=== PATIENT | male | born 1960 ===

== ENCOUNTER 2025-08-29 08:34 | Outpatient (AMB) | payer OTHER, SELFPAY ==
--- NOTE | 2025-08-29 08:56 | A.OFFVIS_ITS ---
Intake Visit Reasons: 6 month f/u HPI Comments Details: 64 years old man with Parkinson's disease. Symptoms started around 2018 when he started to shuffle and had trouble with movements and tremor. He is presenting for a follow-up visit for management of Parkinson's disease. His current medication regimen includes Carbidopa/Levodopa five times daily, rasagiline once daily, and trihexyphenidyl twice daily. He took his morning medications at 6:00 AM and notes he can feel when the dose is wearing off. He tolerates his medications well, denying significant dry mouth from trihexyphenidyl. The patient reports occasional minor visual disturbances, describing them as seeing something like a fly or a color pass by, but denies hallucinations or changes in personality. He experiences variable sleep quality with good and bad nights, and if he cannot sleep, he will get up rather than forcing it. He reports waking up approximately twice per night. The patient was advised by his primary care provider to stop taking rosuvastatin in April due to persistent backaches and other aches, which have since resolved. He confirms he maintains a physically active lifestyle by walking and exercising daily. 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 Review of Systems Narrative - General: Reports enjoying life and maintaining a positive attitude. - Eyes: Reports occasional visual phenomena, such as seeing things fly by or a color. Denies other vision changes. Last eye exam was two years ago. - Mouth: Denies significant dry mouth. - Musculoskeletal: Reports a history of backaches and other aches which resolved after discontinuing rosuvastatin. Reports his back is bothering him a little bit currently. - Neurological: Reports variable sleep with good and bad nights. Denies personality changes. Denies having hallucinations. - Genitourinary: Reports nocturia, waking twice per night. Physical Exam Neuro Other: Mental Status: Alert and oriented to person, place, and time. Normal attention. Normal spontaneous speech, fluency, and comprehension. No obvious issues with mood and memory. Affect is appropriate. Cranial Nerves: CN II: Visual greco full to confrontation, visual acuity intact. CN III, IV, : Pupils equal, round, reactive to light and accommodation. Extraocular movements are normal. CN V: Facial sensation is normal. CN VII: Facial movements symmetrical. CN VIII: Hearing intact to bedside conversation is normal. CN IX, X: Palate elevates symmetrically. CN XI: Shoulder shrug and head turn symmetrical. CN XII: Tongue midline without atrophy or fasciculations. Extrapyramidal: He was examined about 3 hours after his dose. Facial expression blinking were diminished. There was mild generalized bradykinesia and mild hand tremor. Speech: Normal; no dysarthria or tremor. Assessment & Plan Assessment & Plan (1) Parkinson disease: Comment: Meds tried: Carbidopa/levodopa, Ogentys, trihexyphenidyl, Rasagline MRI brain WO at [facility] in Oct 2023: Minimal MVD. Code(s): G20.A1 - Parkinson's disease without dyskinesia, without mention of fluctuations Category: Medical Qualifiers: Dyskinesia presence: without dyskinesia Fluctuating manifestations: without fluctuating manifestations Qualified Code(s): G20.A1 - Parkinson's disease without dyskinesia, without mention of fluctuations (2) MCI (mild cognitive impairment): Code(s): G31.84 - Mild cognitive impairment of uncertain or unknown etiology Category: Medical Plan Impression: Parkinson's disease Recommendations: 1. Carbidopa/levodopa 25/100, 1, 5 times a day 2. Rasagiline 1 mg once a day 3. Trihexyphenidyl 2 mg 1 twice a day - Continue to take your medications as prescribed: carbidopa/levodopa five times a day, rasagiline once a day, and trihexyphenidyl twice a day. - It is important to see an eye doctor once a year to check for glaucoma, as one of your medications can increase this risk. Please find a new eye doctor and schedule an appointment. - Keep up with your daily walking and exercising. - Regarding your sleep, it is okay to get up if you can't sleep at night. Napping during the day is also fine since you are retired. - I will send the refills for your prescriptions to your pharmacy. Medications: New carbidopa-levodopa 25-100 mg (Sinemet) 1 tab orally 5 times a day; 450 tabs 1RF Refilled rasagiline 1 mg PO DAILY 90 tabs 1RF trihexyphenidyl give with food (meal/snack) 2 mg PO BID 180 tabs 1RF Coding Level of Care Code Est Pt Level 4 (38423) Diagnoses Parkinson's disease without dyskinesia or fluctuating manifestations G20.A1 Dyskinesia presence: without dyskinesia Fluctuating manifestations: without fluctuating manifestations MCI (mild cognitive impairment) G31.84
--- OUTSIDE RECORDS SUMMARY | 2025-08-29 16:18 | XMS_ITS | Clinical Summary ---
Author Organization [address] Address [address] [place] [address] Phone Care Team Providers Care Delivery Engineer Name Role Phone Divina Rdz NP Primary Care Provider [phone] Allergies No known active allergies Medications carbidopa-levod opa (SINEMET) 25-100 mg per tablet Take 1 Tablet by mouth 5 times daily. Active rasagiline (AZILECT) 1 mg tablet Take 1 Tablet by mouth daily. Active trihexyphenidyL (ARTANE) 2 mg tablet Take 1 Tablet by mouth 2 times daily. Active rosuvastatin (CRESTOR) 10 mg tablet Take 1 tablet (10 mg total) by mouth every other day. 90 tablet 1 05/15/2025 Active tamsulosin (FLOMAX) 0.4 mg 24 hr capsule TAKE 1 CAPSULE BY MOUTH DAILY. TAKE 30 MINS AFTER SAME MEAL EVERY DAY. *INS REQUIRES 30 DAYS* 90 capsule 1 07/16/2025 Active Active Problems Problem Noted Date Diagnosed Date Benign prostatic hyperplasia with lower urinary tract symptoms 01/11/2023 Mixed hyperlipidemia 01/11/2023 Parkinson's disease (CMS/HCC V24, CMS/HCC V28) 0 01/11/2023 Encounters Date Type Department Care Team Description 06/06/2025 Telephone Internal Medicine - [address] [phone] Divina Rdz NP from Last 3 Months Immunizations Immunization Administration Dates Next Due Zoster recombinant (Shingrix) 19yo and older ,08/06/2022 Surgical History Surgery Date Site/Laterality Comments HERNIA REPAIR 2019 Right PROCEDURE: HISTORICAL HERNIA REPAIR/ING Family History Medical History Relation Name Comments Coronary artery disease Brother 1 Heart attack Brother 1 Lung cancer Mother Relation Name Status Comments Brother 1 Brother 2 Alive Mother Social History Tobacco Use Types Packs/Day Years Used Date Smoking Tobacco: Never Smokeless Tobacco: Never Alcohol Use Standard Drinks/Week Comments Not Currently 0 (1 standard drink = 0.6 oz pur e alcohol) Sex and Gender Information Value Date Recorded Sex Assigned at Not on file Legal Sex Male 12:17 PM EST Gender Identity Not on file Sexual Orientation Not on file Obstetrics History Last Filed Vital Signs Vital Sign Reading Time Taken Comments Blood Pressure 131/88 05/09/2025 4:00 PM EDT A Pulse 75 05/09/2025 4:00 PM EDT Temperature - - Respiratory Rate - - Oxygen Saturation - - Inhaled Oxygen Concentration - - Weight 76.4 kg (168 lb 6.4 oz) 05/09/2025 4:00 P M EDT Height 175.3 cm (5' 9 ) 05/09/2025 4:00 PM EDT Body Mass Index 24.87 05/09/2025 4:00 PM EDT Plan of Treatment Upcoming Encounters Date Type Department Care Team (Late st Contact Info) Description 11/12/2025 8:45 AM EST [facility] [address] [place] [phone] Divina Rdz, DARIO [address] [place] [address] Health Maintenance Due Date Last Done Comments Social Influencers of Health Screening 09/08/2022 COVID-19 Vaccine (3 - 2024-2 6 season) 2025 01/29/2021, 01/04/2021 Influenza Vaccine (#1) 2025 DTaP,Tdap,and Td Vaccines (1 - Tdap) 05/09/2026 Postponed from 12/16/1979 (Patient Refused) Colorectal Cancer Screening: FIT-DNA (Cologuard) 06/19/2028 06/19/2025 Cholesterol Screening (Lipid Panel) 05/09/2030 05/09/2025, 08/01/2024, 08/01/2024 RSV Immunization Adult Patients (1 - 1-dose 75+ series) 12/16/2035 Zoster Vaccines Completed 11/16/2022, 10/01/2022, 08/06/2022 Hepatitis C Screening Completed 01/11/2023 Depression Screening Completed 05/09/2025 HIB Vaccines Aged Out No longer eligi ble based on patient's age to complete this topic HIV Screening Discontinued HPV Vaccines Aged Out No longer eligi ble based on patient's age to complete this topic Hepatitis A Vaccines Aged Out No long er eligible based on patient's age to complete this topic Hepatitis B Vaccines Aged Out No long er eligible based on patient's age to complete this topic IPV Vaccines Aged Out No longer eligi ble based on patient's age to complete this topic MMR Vaccines Aged Out No longer eligi ble based on patient's age to complete this topic Meningococcal ACWY Vaccine Aged Out N o longer eligible based on patient's age to complete this topic Meningococcal B Vaccine Aged Out No l onger eligible based on patient's age to complete this topic Pneumococcal Vaccine: 50+ Years Discontinued RSV Immunization Patients Under 20 months Aged Out No longer eligible b ased on patient's age to complete this topic Varicella Vaccines Aged Out No longer eligible based on patient's age to complete this topic Procedures Procedure Name Priority Date/Time Associated Diagnosis Comments LAB COLOGUARD COLON CANCER SCREEN Routine 06/19/2025 9:45 AM EDT Screen for colon cancer LIPID PANEL WITH REFLEX TO DIRECT LDL Routine 05/09/2025 4:32 PM EDT Screening for metabolic disorder Encounter for lipid screening for cardiovascular disease HEPATITIS C SCREENING Routine 01/11/2023 from Last 3 Months or Most Recently Relevant to Health Maintenance Results * Cologuard?? colon cancer screening (06/19/2025 9:45 AM EDT) COLOGUARD Negative Negative [facility] Comment: The Cologuard (TM) test was performed on this specimen. NEGATIVE TEST RESULT. A negative Cologuard result indicates a low likelihood that a colorectal cancer (CRC) or advanced adenoma (adenomatous polyps with more advanced pre-malignant features) is present. The chance that a person with a negative Cologuard test has a colorectal cancer is less than 1 in 1500 (negative predictive value >99.9%) or has an advanced adenoma is less than 5.3% (negative predictive value 94.7%). These data are based on a prospective cross-sectional study of 10,000 individuals at average risk for colorectal cancer who were screened with both Cologuard and colonoscopy. (Lidia Allen et al, N Engl J Med 2014;370(14):1286- 1297) The normal value (reference range) for this assay is negative. COLOGUARD RE-SCREENING RECOMMENDATION: Periodic colorectal cancer screening is an important part of preventive healthcare for asymptomatic individuals at average risk for colorectal cancer. Following a negative Cologuard result, the [place] [employer] and U.S. Multi-Society Task Force screening guidelines recommend a Cologuard re-screening interval of 3 years. References: [place] [employer] Guideline for Colorectal Cancer Screening: https://www.cancer.org/cancer/rvjhi-trfbov-hbvema/wwxlnilus-ltvyjpuxf-rvnfuua/ac s-rec ommendations.html.; Sunny MCKEON, Oseas GUTIERREZ, Miriam ShepherdK, Colorectal Cancer Screening: Recommendations for Physicians and Patients from the U.S. Multi-Society Task Force on Colorectal Cancer Screening , Am J Gastroenterology 2017; 112:7173-6915. TEST DESCRIPTION: Composite algorithmic analysis of stool DNA-biomarkers with hemoglobin immunoassay. Quantitative values of individual biomarkers are not reportable and are not associated with individual biomarker result reference ranges. Cologuard is intended for colorectal cancer screening of adults of either sex, 45 years or older, who are at average-risk for colorectal cancer (CRC). Cologuard has been approved for use by the U.S. FDA. The performance of Cologuard was established in a cross sectional study of average-risk adults aged 50-84. Cologuard performance in patients ages 45 to 49 years was estimated by sub-group analysis of near-age groups. Colonoscopies performed for a positive result may find as the most clinically significant lesion: colorectal cancer [4.0%], advanced adenoma (including sessile serrated polyps greater than or equal to 1cm diameter) [20%] or non- advanced adenoma [31%]; or no colorectal neoplasia [45%]. These estimates are derived from a prospective cross-sectional screening study of 10,000 individuals at average risk for colorectal cancer who were screened with both Cologuard and colonoscopy. (Lidia Price al, N Engl J Med 2014;370(14):9267-3636.) Cologuard may produce a false negative or false positive result (no colorectal cancer or precancerous polyp present at colonoscopy follow up). A negative Cologuard test result does not guarantee the absence of CRC or advanced adenoma (pre-cancer). The current Cologuard screening interval is every 3 years. ([place] [employer] and U.S. Multi-Society Task Force). Cologuard performance data in a 10,000 patient pivotal study using colonoscopy as the reference method can be accessed at the following location: www.[employer]/results. Additional description of the Cologuard test process, warnings and precautions can be found at www.cologQraniord.com. Stool 06/19/2025 9:45 AM EDT 06/21/2025 1:07 PM EDT Divina Rdz NP LAB MOLECULAR DIAGNOSTICS ORDER LYSSA Final Result [facility] [address] [place] [address] [facility] [address] [place] [id number] * Lipid panel with reflex to direct LDL (05/09/2025 4:32 PM EDT) Cholesterol 170 0 - 200 mg/dL LAB CHEMISTRY METHOD 05/09/2025 6:50 PM EDT [facility] Triglycerides 110 0 - 150 mg/dL LAB CHEMISTRY METHOD 05/09/2025 6:50 PM EDT [facility] HDL 62 >=40 mg/dL LAB CHEMISTRY METHOD 05/09/2025 6:50 PM EDT [facility] LDL Calculated 86 0 - 100 mg/dL LAB CHEMISTRY METHOD 05/09/2025 6:50 PM EDT [facility] VLDL Cholesterol Nikita 22 mg/dL LAB CHEMISTRY METHOD 05/09/2025 6:50 PM EDT [facility] Non HDL Chol. (LDL+VLDL) 108 <145 mg/dL LAB CHEMISTRY METHOD 05/09/2025 6:50 PM EDT [facility] Chol/HDL Ratio 2.7 0.0 - 4.4 LAB CHEMISTRY METHOD 05/09/2025 6:50 PM EDT [facility] Blood Venous blood specimen / Unknown Venipuncture / Unknown 05/09/2025 4:32 PM EDT 05/09/2025 4:32 PM EDT Divina Rdz NP LAB BLOOD ORDERABLES Final Resu lt [facility] [address] [place] [address], [place] [phone] * Hepatitis C Screening (01/11/2023) Pathologist [facility] Hepatitis C Screening Abstracted Historical Provider HEALTH MAINTENANCE Final Result from Last 3 Months or Most Recently Relevant to Health Maintenance Insurance Care Teams Delivery Engineer Relationship Specialty Start Date End Date Divina Rdz NP [address] [place] [address] PCP - General 11/16/22
== END 2025-08-29 09:05 | disposition home or self-care (01) ==
LOC: HO.HSM 08:34
PROVIDERS: PCP Nurse Practitioner Primary Care; Referring Provider Nurse Practitioner Primary Care; Visit Provider Psychiatry & Neurology Neurology
DX: G20.A1 Parkinson's disease without dyskinesia, without mention of fluctuations (principal); G31.84 Mild cognitive impairment of uncertain or unknown etiology
CPT/HCPCS: 99214